=== PATIENT | female | born 1975 | race Caucasian/White ===

== ENCOUNTER → 2024-02-19 | Outpatient (CLI) | payer BC, SELFPAY ==
[2024-02-19 13:44] LABS: Amphetamine/Methamp Scrn,U Negative (Negative); Barbiturate Screen,Urine Negative (Negative); Benzodiazepines Screen,Urine Negative (Negative); Benzoylecgonine Screen, Ur Negative (Negative); Fentanyl Screen,Urine Negative (Negative); Opiate Screen,Urine Positive (Negative); THC Screen,Urine Negative (Negative)
== END | disposition home or self-care (01) ==
LOC: SLDO 12:47
PROVIDERS: PCP Family Medicine; Referring Provider Family Medicine; Visit Provider Family Medicine
DX: Z79.891 Long term (current) use of opiate analgesic (principal)
CPT/HCPCS: 80307

== ENCOUNTER → 2024-04-22 | Outpatient (CLI) | payer BC, SELFPAY ==
[2024-04-22 17:53] LABS: Amphetamine/Methamp Scrn,U Negative (Negative); Barbiturate Screen,Urine Negative (Negative); Benzodiazepines Screen,Urine Negative (Negative); Benzoylecgonine Screen, Ur Negative (Negative); Fentanyl Screen,Urine Negative (Negative); Opiate Screen,Urine Positive (Negative); THC Screen,Urine Negative (Negative)
== END | disposition home or self-care (01) ==
LOC: SLDO 17:14
PROVIDERS: PCP Family Medicine; Referring Provider Family Medicine; Visit Provider Family Medicine
DX: Z79.891 Long term (current) use of opiate analgesic (principal)
CPT/HCPCS: 80307

== ENCOUNTER → 2024-06-24 | Outpatient (CLI) | payer BC, SELFPAY ==
[2024-06-24 17:03] LABS: Amphetamine/Methamp Scrn,U Negative (Negative); Barbiturate Screen,Urine Negative (Negative); Benzodiazepines Screen,Urine Negative (Negative); Benzoylecgonine Screen, Ur Negative (Negative); Fentanyl Screen,Urine Negative (Negative); Opiate Screen,Urine Positive (Negative); THC Screen,Urine Negative (Negative)
== END | disposition home or self-care (01) ==
LOC: SLDO 15:41
PROVIDERS: PCP Family Medicine; Referring Provider Family Medicine; Visit Provider Family Medicine
DX: M54.50 Low back pain, unspecified (principal)
CPT/HCPCS: 80307

== ENCOUNTER → 2024-07-07 | Outpatient (CLI) | payer BC, SELFPAY ==
[2024-07-07 15:46] LABS: Collection Type, Urine Clean Catch
[2024-07-07 16:33] LABS: Basophils % (Auto) 0 % (0-2.5); Eosinophils # (Auto) 0.1 Thou/mm3 (0.0-0.5); Eosinophils % (Auto) 2 % (0-10); Hematocrit 44.1 % (36.0-46.0); Hemoglobin 14.5 g/dL (12.0-16.0); Immature Granulocytes % (Auto) 0 % (0-0); Immature Granulocytes Auto 0.01 Thou/mm3 (0.00-0.00); Lymphocytes # (Auto) 1.8 Thou/mm3 (1.0-4.8); Lymphocytes % (Auto) 33 % (10-50); Mean Corpuscular HGB Conc 32.9 g/dl (31.0-37.0); Mean Corpuscular Volume 88 fL (80-100); Monocytes # (Auto) 0.4 Thou/mm3 (0.0-0.8); Monocytes % (Auto) 8 % (0-12); Neutrophils # (Auto) 3.1 Thou/mm3 (1.8-7.7); Neutrophils % (Auto) 57 % (37-80); Nucleated Red Blood Cell % 0 /100 WBC (0); Platelet Count 282 Thou/mm3 (140-440); RDW Standard Deviation 40.1 fL (36.4-46.3); White Blood Count 5.5 Thou/mm3 (3.6-11.0)
[2024-07-07 16:44] LABS: Bacteria,Urine Rare; Bilirubin,Urine Negative (Negative); Blood,Urine 3+ (Negative); Color,Urine Yellow (Lt Yel-Yel); Glucose, Urine Negative (Negative); Ketones,Urine Negative (Negative); Leukocyte Esterase,Urine Positive (Negative); Nitrite,Urine Negative (Negative); Protein,Urine 2+ (Neg - Trace); RBC,Urine 217 /hpf (0-3); Specific Gravity,Urine 1.023 (1.001-1.035); Squamous Epithelial Cell,Urine 19 /hpf (0-5); Urobilinogen,Urine Negative mg/dL (0.0-1.0); WBC,Urine 546 /hpf (0-5)
[2024-07-07 16:48] LABS: Clarity,Urine Hazy (Clear/Hazy)
== END | disposition home or self-care (01) ==
LOC: COPL 15:33
PROVIDERS: PCP Family Medicine; Referring Provider Family Medicine; Visit Provider Family Medicine
DX: N39.0 Urinary tract infection, site not specified (principal)
CPT/HCPCS: 36415; 81001; 85025; 87077; 87086; 87186

== ENCOUNTER → 2024-09-23 | Outpatient (CLI) | payer BC, SELFPAY ==
[2024-09-23 17:00] LABS: Amphetamine/Methamp Scrn,U Negative (Negative); Barbiturate Screen,Urine Negative (Negative); Benzodiazepines Screen,Urine Negative (Negative); Benzoylecgonine Screen, Ur Negative (Negative); Fentanyl Screen,Urine Negative (Negative); Opiate Screen,Urine Positive (Negative); THC Screen,Urine Negative (Negative)
== END | disposition home or self-care (01) ==
LOC: SLDO 15:31
PROVIDERS: PCP Family Medicine; Referring Provider Family Medicine; Visit Provider Family Medicine
DX: M47.22 Other spondylosis with radiculopathy, cervical region (principal)
CPT/HCPCS: 80307

== ENCOUNTER → 2024-11-18 | Outpatient (CLI) | payer BC, SELFPAY ==
[2024-11-18 17:10] LABS: Amphetamine/Methamp Scrn,U Negative (Negative); Barbiturate Screen,Urine Negative (Negative); Benzodiazepines Screen,Urine Negative (Negative); Benzoylecgonine Screen, Ur Negative (Negative); Fentanyl Screen,Urine Negative (Negative); Opiate Screen,Urine Positive (Negative); THC Screen,Urine Negative (Negative)
== END | disposition home or self-care (01) ==
LOC: SLDO 15:35
PROVIDERS: PCP Family Medicine; Referring Provider Family Medicine; Visit Provider Family Medicine
DX: M47.24 Other spondylosis with radiculopathy, thoracic region (principal); M47.22 Other spondylosis with radiculopathy, cervical region
CPT/HCPCS: 80307

== ENCOUNTER → 2024-12-08 | Outpatient (CLI) | payer BC, SELFPAY ==
[2024-12-08 17:26] LABS: Collection Type, Urine Clean Catch
[2024-12-08 18:01] LABS: Bacteria,Urine Rare; Bilirubin,Urine Negative (Negative); Blood,Urine Trace (Negative); Clarity,Urine Turbid (Clear/Hazy); Color,Urine Yellow (Lt Yel-Yel); Glucose, Urine Negative (Negative); Ketones,Urine Negative (Negative); Leukocyte Esterase,Urine Positive (Negative); Nitrite,Urine Negative (Negative); PH,Urine 6.0 (5.0-7.0); Protein,Urine Trace (Neg - Trace); RBC,Urine 4 /hpf (0-3); Specific Gravity,Urine 1.025 (1.001-1.035); Squamous Epithelial Cell,Urine 17 /hpf (0-5); Urobilinogen,Urine Negative mg/dL (0.0-1.0); WBC,Urine 8 /hpf (0-5)
== END | disposition home or self-care (01) ==
LOC: SLDO 17:15
PROVIDERS: PCP Family Medicine; Referring Provider Family Medicine; Visit Provider Family Medicine
DX: Z01.89 Encounter for other specified special examinations (principal)
CPT/HCPCS: 81001; 87086

== ENCOUNTER → 2024-12-11 | Outpatient (CLI) | payer BC, SELFPAY ==
[2024-12-11 16:34] LABS: Basophils # (Auto) 0.0 Thou/mm3 (0.0-0.2); Basophils % (Auto) 1 % (0-2.5); Eosinophils # (Auto) 0.1 Thou/mm3 (0.0-0.5); Eosinophils % (Auto) 1 % (0-10); Hematocrit 41.7 % (36.0-46.0); Hemoglobin 13.7 g/dL (12.0-16.0); Immature Granulocytes Auto 0.04 Thou/mm3 (0.00-0.00); Lymphocytes # (Auto) 2.5 Thou/mm3 (1.0-4.8); Lymphocytes % (Auto) 40 % (10-50); Mean Corpuscular HGB Conc 32.9 g/dl (31.0-37.0); Mean Corpuscular Hemoglobin 29.2 pg (25.0-35.0); Mean Corpuscular Volume 89 fL (80-100); Monocytes # (Auto) 0.4 Thou/mm3 (0.0-0.8); Monocytes % (Auto) 7 % (0-12); Neutrophils # (Auto) 3.2 Thou/mm3 (1.8-7.7); Neutrophils % (Auto) 51 % (37-80); Nucleated Red Blood Cell # 0.00 Thou/mm3 (0.00-0.00); Nucleated Red Blood Cell % 0 /100 WBC (0); Platelet Count 285 Thou/mm3 (140-440); RDW Standard Deviation 37.5 fL (36.4-46.3); Red Blood Count 4.69 Miln/mm3 (4.00-5.20); White Blood Count 6.3 Thou/mm3 (3.6-11.0)
[2024-12-11 17:08] LABS: Sed Rate (ESR) 87 mm/hr (0-30)
[2024-12-11 17:14] LABS: Glucose Estimated Average 108 mg/dL (80-131); Hemoglobin A1C 5.4 % Hgb (4.8-6.0)
[2024-12-11 17:17] LABS: RA Screen Negative (Negative)
[2024-12-11 17:42] LABS: Free T4 (Free Thyroxine) 1.20 ng/dL (0.89-1.76); Thyroid Stimulating Hormone 2.80 uIU/mL (0.55-4.78)
[2024-12-11 19:27] LABS: Uric Acid 6.0 mg/dL (3.1-7.8)
[2024-12-11 23:17] LABS: Folate 11.50 ng/mL (>5.38); Vitamin B12 218 pg/mL (211-911)
[2024-12-17 15:34] LABS: Cardiolipin Ab (IgA) 5.8 APL-U/mL; Cardiolipin Ab (IgG) <2.0 GPL-U/mL; Sjogren's antibody (SS-A) <1.0 NEG AI (<1.0 NEGATIVE); Sm Antibody <1.0 NEG AI (<1.0 NEGATIVE)
[2024-12-18 07:15] LABS: ANA Screen, IFA NEGATIVE (NEGATIVE); Complement Component C3* 221 mg/dL (83-193); Complement Component C4c* 37 mg/dL (15-57); DNA (ds) Antibody* <1 IU/mL; Scl-70 Antibody* <1.0 NEG AI (<1.0 NEGATIVE); Sjogren's Antibody (SS-B) <1.0 NEG AI (<1.0 NEGATIVE); Thyroglobulin Antibodies* <1 IU/mL (< OR = 1)
[2024-12-18 07:16] LABS: B2-Glycoprotein I Ab IgA <2.0 U/mL; B2-Glycoprotein I Ab IgG <2.0 U/mL; B2-Glycoprotein I Ab IgM <2.0 U/mL; CCP Antibody (IgG)* <16 Units; Cardiolipin Ab (IgM) <2.0 MPL-U/mL; Sm/RNP Antibody <1.0 NEG AI (<1.0 NEGATIVE); Thyroid Peroxidase Antibodies* <1 IU/mL (<9)
== END | disposition home or self-care (01) ==
PROVIDERS: PCP Family Medicine; Referring Provider Family Medicine; Visit Provider Family Medicine
DX: R30.0 Dysuria (principal); E11.65 Type 2 diabetes mellitus with hyperglycemia
CPT/HCPCS: 36415; 82607; 82746; 83036; 84439; 84443; 84550; 85025; 85652; 86038; 86146; 86147; 86160; 86200; 86225; 86235; 86376; 86430; 86800

== ENCOUNTER → 2025-01-21 | Outpatient (CLI) | payer BC, SELFPAY ==
[2025-01-21 16:51] LABS: Amphetamine/Methamp Scrn,U Negative (Negative); Barbiturate Screen,Urine Negative (Negative); Benzodiazepines Screen,Urine Negative (Negative); Benzoylecgonine Screen, Ur Negative (Negative); Fentanyl Screen,Urine Negative (Negative); Opiate Screen,Urine Positive (Negative); THC Screen,Urine Negative (Negative)
== END | disposition home or self-care (01) ==
PROVIDERS: PCP Family Medicine; Referring Provider Family Medicine; Visit Provider Family Medicine
DX: M47.26 Other spondylosis with radiculopathy, lumbar region (principal)
CPT/HCPCS: 80307

== ENCOUNTER → 2025-01-29 | Outpatient (CLI) | payer BC, SELFPAY ==
--- NOTE | 2025-01-29 12:20 | XR_ITS ---
Examination: Bone densitometry Date and time of exam: January 29, 2025, 1226 hours INDICATIONS: Hysterectomy age 28 estradiol 20 years, postmenopausal back fracture age 44 rheumatoid arthritis diagnosis Technique: Lumbar spine and hip total bone mineralization values of an calculated. Peak reference and age match control results have been displayed. Findings: Lumbar spine total bone mineralization is 1.167 gm/cm2. This is 1.1 standard deviations above peak reference. This is 1.9 standard deviations above age-matched controls. Hip total bone mineralization is 1.084 gm/cm2 This is 1.2 standard deviations above peak reference. This is 1.7 standard deviations above age-matched controls Impression: There is normal mineralization based on lumbar spine measurements. There is normal mineralization based on hip measurements Lumbar mineralization is increased 4.1% compared with September 30, 2013 Hip mineralization is increased 9.8% compared with September 30, 2013
== END | disposition home or self-care (01) ==
LOC: CDIM 11:28
PROVIDERS: Referring Provider Family Medicine; Visit Provider Family Medicine
DX: M85.89 Other specified disorders of bone density and structure, multiple sites (principal)
CPT/HCPCS: 77080

== ENCOUNTER → 2025-02-22 | Outpatient (CLI) | payer BC, SELFPAY ==
--- NOTE | 2025-02-22 10:00 | XR_ITS ---
EXAMINATION: Thoracic spine 2 views TECHNIQUE: AP lateral thoracic spine 2 views Date and time: February 22, 2025, 1106 hours INDICATION: Back pain months. FINDINGS: No acute thoracic fracture Mild to moderate diffuse thoracic disc narrowing Mild thoracic spondylosis No acute thoracic fracture IMPRESSION: Mild to moderate diffuse thoracic degenerative disc disease
--- NOTE | 2025-02-22 10:00 | XR_ITS ---
EXAMINATION: Cervical spine, 5 views Technique: Cervical spine AP, AP odontoid, lateral, bilateral obliques, 5 views Exam date and time: February 22, 2025, 1052 hours INDICATIONS: Neck pain months. FINDINGS: Satisfactory alignment cervical vertebral bodies No cervical fracture or significant cervical disc narrowing Intact odontoid No significant neuroforaminal stenosis IMPRESSION: No cervical fracture or significant cervical disc narrowing
--- NOTE | 2025-02-22 10:00 | XR_ITS ---
Examination: Lumbar spine, 5 views Technique: Lumbar spine AP, lateral, coned lateral lower lumbar spine, bilateral obliques 5 views Exam date and time: February 22, 2025, 1048 hours INDICATIONS: Back pain months. FINDINGS: Transitional S1 vertebral body No lumbar fracture Mild lumbar spondylosis No significant lumbar disc narrowing IMPRESSION: Mild lumbar spondylosis No significant lumbar disc narrowing
[2025-02-22 10:44] LABS: C-Reactive Protein 2.3 mg/dL (0.0-0.9)
[2025-02-22 11:04] LABS: Sed Rate (ESR) 40 mm/hr (0-30)
[2025-02-25 15:33] LABS: Albumin 3.9 g/dL (3.8-4.8); Alpha-1-Globulin 0.4 g/dL (0.2-0.3); Alpha-2-Globulin 0.9 g/dL (0.5-0.9); Beta-1-Globulin 0.6 g/dL (0.4-0.6); Beta-2-globulin 0.6 g/dL (0.2-0.5); Gamma Globulin 0.9 g/dL (0.8-1.7)
[2025-02-26 06:44] LABS: ANCA Screen NEGATIVE (NEGATIVE); HLA-B27 Antigen* NEGATIVE (NEGATIVE); Myeloperoxidase Ab <1.0 AI (<1.0); Protein, total, serum 7.2 g/dL (6.1-8.1); Proteinase-3 Ab <1.0 AI (<1.0)
== END | disposition home or self-care (01) ==
LOC: CDIM 09:05
PROVIDERS: PCP Family Medicine; Referring Provider Nurse Practitioner Family; Visit Provider Nurse Practitioner Family
DX: M54.2 Cervicalgia (principal); M51.34 Other intervertebral disc degeneration, thoracic region; M47.816 Spondylosis without myelopathy or radiculopathy, lumbar region; R70.0 Elevated erythrocyte sedimentation rate
CPT/HCPCS: 36415; 72050; 72072; 72110; 84155; 84165; 85652; 86021; 86036; 86140; 86812

== ENCOUNTER 2025-03-15 05:29 | Emergency (ER) | payer BC, SELFPAY ==
[2025-03-15 05:30] VITALS: BMI 33.0
[2025-03-15 05:41] VITALS: BP 128/80; PULSE 71; RESP 19; TEMP 35.3; O2SAT 97
--- NOTE | 2025-03-15 05:44 | XR_ITS ---
EXAMINATION: Bilateral ribs with upright PA chest 4 views TECHNIQUE: Upright PA chest, RPO LPO: AP lower ribs total 4 views Date and time: March,, 0654 hours INDICATIONS: Ground-level fall today with injury to the chest, bilateral rib pain FINDINGS: Normal heart size No pneumothorax. Ribs appear intact IMPRESSION: No pneumothorax pulmonary contusion or hemothorax Ribs appear intact
--- NOTE | 2025-03-15 05:44 | XR_ITS ---
EXAMINATION: Cervical spine 4 views TECHNIQUE: AP, lateral, swimmer's lateral, coned AP odontoid cervical spine 4 views Date and time: March, 0710 hours INDICATIONS: Ground-level fall today with injury to the neck, neck pain. FINDINGS: Satisfactory alignment cervical vertebral bodies There is no diagnostic visualization of C6 or C7 No visualized fracture Odontoid intact IMPRESSION: Limited study, no diagnostic visualization of C6 or C7, consider CT scan cervical spine without contrast follow-up
--- NOTE | 2025-03-15 05:44 | XR_ITS ---
EXAMINATION: Lumbar spine 3 views TECHNIQUE: AP lateral: Lateral lower lumbar spine 3 views Date and time: March 15, 2025, 0651 hours, comparison February 12, 2025 INDICATIONS: Ground-level fall today with injury to the lower back, lower back pain. FINDINGS: Satisfactory alignment lumbar vertebral bodies Transitional L5 vertebral body taking into account rudimentary T12 ribs Mild lumbar spondylosis Moderate degenerative disc disease T11-T12 IMPRESSION: No acute lumbar fracture
--- NOTE | 2025-03-15 05:45 | XR_ITS ---
EXAMINATION: Sacroiliac joints 3 views TECHNIQUE: AP, RPO LPO sacroiliac joints 3 views Disease date and time: March,, 0659 hours INDICATIONS: Ground-level fall today with injury to the sacrum, sacral pain. FINDINGS: Symmetrical sacral foramina No sacral fracture depicted, however there is no lateral view of the sacrum IMPRESSION: Limited study No acute sacral fracture and visualized bones of the pelvis intact
--- NOTE | 2025-03-15 05:45 | PD.EDRME ---
Rapid Medical Screening Exam E Arrival date/time: 03/15/25 05:29 This is a case of 50-year-old female with no medical history came in due to fall injury now with neck pain rib pain bilaterally lower lumbar pain and sacral wound was painful denies any head nor abdominal injury no loss of consciousness Chief Complaint: Fall Time Seen by Provider: 03/15/25 05:44 Vital signs: Vital Signs Temperature 95.6 F L 03/15/25 05:41 Pulse Rate 71 03/15/25 05:41 Respiratory Rate 19 03/15/25 05:41 Blood Pressure 128/80 03/15/25 05:41 Pulse Oximetry (%) 97 03/15/25 05:41 Oxygen Delivery Method Room Air 03/15/25 05:41 Exam: Mild tenderness on the cervical area lumbar area and sacral bone and rib area no crepitation no deformity no swelling ROM Clinical Impression: Fall injury
[2025-03-15] MEDS: KETOROLAC INJ 60 MG/2 ML VIAL 30 MG IM (07:40)
--- NOTE | 2025-03-15 08:30 | EDNOTE_ITS ---
ED Fall Injury RME/HPI General Chief Complaint: Fall Stated Complaint: FELL, BACK AND RIB PAIN Time Seen by Provider: 03/15/25 05:44 Source: patient Arrival date/time: 03/15/25 05:29 50-year-old female with no known medical history presents to the emergency room with a chief complaint of back pain and rib pain after a ground-level fall Mode of arrival: ambulatory Limitations: no limitations RME / HPI RME / HPI Narrative: 03/15/25 05:29 This is a case of 50-year-old female with no medical history came in due to fall injury now with neck pain rib pain bilaterally lower lumbar pain and sacral wound was painful denies any head nor abdominal injury no loss of consciousness Exam: Mild tenderness on the cervical area lumbar area and sacral bone and rib area no crepitation no deformity no swelling ROM Impression: Fall injury Related Data Home Medications ?Medication ?Instructions ?Recorded ?Confirmed hydrocodone 10 mg-acetaminophen 1 tab PO Q6H PRN Pain #0 tabs 02/07/14 05/19/19 325 mg tablet (Welling) omeprazole 40 mg capsule,delayed 40 mg PO QDAY ##0 05/2205/19/19 release (Prilosec) lorazepam 1 mg tablet 0.5 mg PO BID 05/19/1905/19 tizanidine 4 mg tablet 4 mg PO Q6H PRN Spasms 05/1905/19/19 Previous Rx's ?Medication ?Instructions ?Recorded peg 3350-electrolytes 236 240 ml PO Q1H #4,000 mL 11/07 08/28 gram-22.74 gram-6.74 gram-5.86 gram solution (Golytely) ibuprofen 800 mg tablet 800 mg PO Q8H #30 tabs 03/15 Allergies Allergy/AdvReac Type Severity Reaction Status Date / Time lamotrigine Allergy Severe ANPHYLACTIC Verified 11/30/22 06:51 SHOCK sertraline Allergy Severe Anaphylaxis Verified 11/30/22 06:51 iodine Allergy Intermediate RASH, Verified 11/30/22 06:51 MIGRAINE codeine Allergy Mild SOB Verified 11/30/22 06:51 cephalexin (From Keflex) Allergy Verified 11/30/22 06:51 SHELLFISH Allergy Mild SOB Uncoded 11/30/22 06:51 Review of Systems Review of Systems Systems Reviewed: All systems reviewed, normal except as documented Constitutional Constitutional: Reports system reviewed and no additional complaints, except as documented, Reports body ache(s), Denies fatigue, Denies fever(s), Denies headache(s) and Denies weakness Eyes Eyes: Reports system reviewed and no additional complaints, except as documented, Denies blurry vision and Denies change in vision ENT Ears, Nose, Mouth, and Throat: Reports system reviewed and no additional complaints, except as documented, Denies otalgia, Denies headache(s), Denies nasal congestion, Reports neck pain, Denies throat swelling and Denies vertigo Cardiovascular Cardiovascular: Reports system reviewed and no additional complaints, except as documented, Denies chest pain, Denies dyspnea and Denies dyspnea on exertion Respiratory Respiratory: Reports system reviewed and no additional complaints, except as documented, Denies chest congestion, Denies cough, Denies dyspnea, Denies dyspnea on exertion and Denies wheezing Gastrointestinal Gastrointestinal: Reports system reviewed and no additional complaints, except as documented, Denies abdominal pain, Denies cramping, Denies nausea and Denies vomiting Genitourinary Genitourinary: Reports system reviewed and no additional complaints, except as documented Musculoskeletal Musculoskeletal: Reports system reviewed and no additional complaints, except as documented, Reports arthralgias, Denies back pain, Reports joint swelling, Reports limited range of motion and Reports neck pain Integumentary/Breasts Skin/Breast: Reports system reviewed and no additional complaints, except as documented and Denies wounds Neurologic Neurologic: Reports system reviewed and no additional complaints, except as documented, Denies confusion, Denies headache(s), Denies lack of coordination, Denies vertigo and Denies weakness Psychiatric Psychiatric: Reports system reviewed and no additional complaints, except as documented, Denies anxiety, Denies confusion, Denies depression, Denies paranoia, Denies suicidal ideation and Denies tactile hallucinations Endocrine Endocrine: Reports system reviewed and no additional complaints, except as documented and Denies fatigue Hematologic/Lymphatic Hematologic/Lymphatic: Reports system reviewed and no additional complaints, except as documented and Denies lymphadenopathy Allergic/Immunologic Allergic/Immunologic: Reports system reviewed and no additional complaints, except as documented, Denies throat swelling, Denies urticaria and Denies wheezing Past Medical History Past Medical History CARDIAC: Negative Congestive Heart Failure RESPIRATORY: Negative Chronic Obstructive Pulmonary Disease (COPD) GENITOURINARY: Negative Renal Disease MUSCULOSKELETAL: Positive Musculoskeletal Disorders, Rheumatoid Arthritis, Osteoporosis, Degenerative Disk Disease, Fractures and Degenerative Joint Disease ENDOCRINE: Negative Diabetes Mellitus Type 1 or Diabetes Mellitus Type 2 Social History SMOKING STATUS: Former smoker SUBSTANCE USE: does not use ED Exam General Limitations: Present no limitations General appearance: Present alert and in no apparent distress Head Head exam: Present atraumatic Eye Eye exam: Present normal appearance, PERRL and EOMI ENT ENT exam: Present normal exam, normal oropharynx and mucous membranes moist Neck Neck exam: Present normal inspection, full ROM and trachea midline Chest Chest inspection: Present normal inspection and symmetric chest wall rise Respiratory Respiratory exam: Present normal lung sounds bilaterally; Absent respiratory distress, wheezes, stridor, accessory muscle use or prolonged expiratory phase Cardiovascular Cardiovascular exam: Present regular rate, normal rhythm and normal heart sounds; Absent tachycardia Abdominal Exam Abdominal exam: Present soft and normal bowel sounds; Absent tenderness Extremities Exam Extremities exam: Present normal inspection and full ROM Back Exam Back exam: Present normal inspection and full ROM Neurological Exam Neurological exam: Present alert, oriented X3 and CN II-XII intact Psychiatric Psychiatric exam: Present normal affect and normal mood Skin Skin exam: Present warm, dry, intact and normal color Course Quality Measures none Orders Category Date Time Status XR cervical spine 2-3V Stat Exams 03/15/25 05:44 Completed XR lumbar spine 2-3V Stat Exams 03/15/25 05:44 Completed XR ribs BI 3V Stat Exams 03/15/25 05:44 Completed XR sacroiliac joint BI min 3V Stat Exams 03/15/25 05:45 Completed Ketorolac Inj [Toradol Inj] Med 03/15/25 07:29 Discontinued 30 mg IM X1 ONE Vital Signs Vital signs: Vital Signs Temperature 95.6 F L 03/15/25 05:41 Pulse Rate 71 03/15/25 05:41 Respiratory Rate 19 03/15/25 05:41 Blood Pressure 128/80 03/15/25 05:41 Pulse Oximetry (%) 97 03/15/25 05:41 Oxygen Delivery Method Room Air 03/15/25 05:41 Fall MDM Narrative MDM Narrative:: 50-year-old female with no known medical history presents to the emergency room with a chief complaint of back pain and rib pain after a ground-level fall Patient is hemodynamically stable and in no apparent distress Physical examination shows lower lumbar back pain and bilateral rib pain. The patient has a clear bilateral lung sounds no wheezing no abnormal breath sounds Patient has a strong and regular rhythm. Patient has a lumbar back pain. There is no numbness there is no saddle anesthesia there is no loss of bowel or bladder function X-rays of the ribs, cervical spine, lumbar spine, sacrum were all negative for any acute findings Patient was discharged and educated to follow-up with primary care provider in the next 24 to 48 hours and return to the emergency room for any evidence of w orsening signs or symptoms Patient data External records reviewed:: [facility] previous records Clinical information provided by:: patient Social determinants that could affect healthcare access:: none Patient has the following chronic illnesses:: No chronic illness How is presenting disease/condition affected by chronic disease/condition?: no chronic disease Evaluation data The following diagnostics were reviewed and interpreted by me:: lab results and radiology exam(s) Lab and/or radiology exams considered but not ordered:: Labs and radiology exams considered and ordered Interpretation Summary: X-ray ribs-FINDINGS: Normal heart size No pneumothorax. Ribs appear intact IMPRESSION: No pneumothorax pulmonary contusion or hemothorax Ribs appear intact X-ray cervical spine-FINDINGS: Satisfactory alignment cervical vertebral bodies There is no diagnostic visualization of C6 or C7 No visualized fracture Odontoid intact IMPRESSION: Limited study, no diagnostic visualization of C6 or C7, consider CT scan cervical spine without contrast follow-up X-ray lumbar spine-FINDINGS: Satisfactory alignment lumbar vertebral bodies Transitional L5 vertebral body taking into account rudimentary T12 ribs Mild lumbar spondylosis Moderate degenerative disc disease T11-T12 IMPRESSION: No acute lumbar fracture X-ray sacrum-FINDINGS: Symmetrical sacral foramina No sacral fracture depicted, however there is no lateral view of the sacrum IMPRESSION: Limited study No acute sacral fracture and visualized bones of the pelvis intact Medications / Prescriptions Medications or Prescriptions considered but not ordered:: Medication given Medication administrations:: Medication Administration History Discontinued Medications Ketorolac Tromethamine (Ketorolac Inj 60 Mg/2 Ml Vial) 30 mg IM X1 ONE Stop: 03/15/25 07:30 Last Admin: 03/15/25 07:40 Dose: 30 mg Documented By: STEVE Medication given Consultations Consultation(s) initiated? (list below): No Diagnosis Fall Differential Diagnosis: compression fracture and other (Fall with injury) Most likely diagnosis given after review of the tests above:: Fall with injury Admission Indicated Admission indicated?: not indicated Admission Request Was there a request for admission?: No Disposition Plan Disposition Plan: Discharge Discharge Attestation Discharge Attestation: The patient and all family members were given an opportunity to ask questions and understood the discharge instructions. Discharge instructions specifically effects, indications for sooner follow up or return to the emergency department, and the expected course of current diagnosis. Patient condition: Stable Discharge Plan Plan Patient Disposition: HOME (Self Care) Discharge Disposition comment: Stable Prescriptions/Referrals Prescriptions/Med Rec: New ibuprofen 800 mg tablet 800 mg PO Q8H Qty: 30 0RF No Action hydrocodone-acetaminophen [Welling] 10-325 mg Tablet 1 tab PO Q6H PRN (Reason: Pain) Qty: 0 omeprazole [Prilosec] 40 MG capsule,delayed release(DR/EC) 40 mg PO QDAY Qty: 0 Patient Comments: TO SUPPRESS GASTRIC SECRETIONS tizanidine 4 mg Tablet 4 mg PO Q6H PRN (Reason: Spasms) lorazepam 1 mg Tablet 0.5 mg PO BID peg 3350-electrolytes [Golytely] 236-22.74-6.74 -5.86 gram recon soln 240 ml PO Q1H Qty: 4000 0RF Rx Instructions: until fecal effluent is clear Referrals: Jarocho Dow MD [Primary Care Provider, Family Practice] - In 1 week Problem List Clinical Impression: Fall with injury Patient/Caregiver Discharge Instructions Education Materials: ED Fall with Uncertain Cause Additional Instructions: Please follow-up with your primary care provider in the next 24 to 48 hours Your x-rays were completed and were all negative for any acute fractures or dislocations For any evidence of worsening signs or symptoms return to emergency room immediately Print Language: Singaporean Stand Alone Forms: [employer] Award Info., Work/School Release, Patient Portal Info Letter CHARLOTTE/JENELLE Supervising Physician CHARLOTTE/JENELLE Supervising Physician: Dr. Estrada
== END 2025-03-15 10:17 | disposition home or self-care (01) ==
PROVIDERS: Emergency Provider Emergency Medicine; PCP Family Medicine
DX: S19.9XXA Unspecified injury of neck, initial encounter (principal); S29.8XXA Other specified injuries of thorax, initial encounter; S39.92XA Unspecified injury of lower back, initial encounter; W18.30XA Fall on same level, unspecified, initial encounter
CPT/HCPCS: 71110; 72040; 72050; 72100; 72202; 96372; 99283; J1885

== ENCOUNTER → 2025-03-19 | Outpatient (CLI) | payer BC, SELFPAY ==
[2025-03-19 16:41] LABS: Amphetamine/Methamp Scrn,U Negative (Negative); Barbiturate Screen,Urine Negative (Negative); Benzodiazepines Screen,Urine Negative (Negative); Benzoylecgonine Screen, Ur Negative (Negative); Fentanyl Screen,Urine Negative (Negative); Opiate Screen,Urine Positive (Negative); THC Screen,Urine Negative (Negative)
== END | disposition home or self-care (01) ==
LOC: SLDO 15:40
PROVIDERS: PCP Family Medicine; Referring Provider Family Medicine; Visit Provider Family Medicine
DX: M47.26 Other spondylosis with radiculopathy, lumbar region (principal); M47.22 Other spondylosis with radiculopathy, cervical region
CPT/HCPCS: 80307